=== PATIENT | male | born 1985 | race Caucasian/White ===

== ENCOUNTER 2017-04-30 12:09 | Inpatient (IN) | payer OTHER ==
[~2017-04-30] VITALS: Ht 167.6 cm; Wt 88.9 kg
[2017-04-30] VITALS (8 sets, daily range): BP systolic 120–167; BP diastolic 60–90
[~2017-04-30 12:09] MED LIST: ANAPROX DS550 MG PO; AUGMENTIN 875 M1 TAB PO; CLINDAMYCIN150 MG PO; DARVOCET N 1001 TAB PO; MOTRIN800 MG PO; PEPCID20 MG PO; PROVENTIL0.09 MG/AC IH; VIBRAMYCIN100 MG PO; XANAX0.25 MG PO; XANAX0.5 MG PO; ZITHROMAX Z PA250 MG PO
[2017-04-30 14:24] LABS: ALBUMIN 3.8 gm/dl (3.1-4.5); ALKALINE PHOSPHATASE 96 U/L (45-117); BUN 11 mg/dl (7-24); CHLORIDE 107 mmol/L (98-107); POTASSIUM 3.8 mmol/L (3.5-5.1); SGOT/AST 23 IU/L (3-35); SGPT/ALT 37 U/L (12-78); SODIUM 139 mmol/L (136-145); TOTAL PROTEIN 7.2 gm/dL (6.4-8.2)
[2017-04-30 14:26] LABS: BASO % 0.3 % (0.0-1.0); EOS % 0.3 % (1.0-4.0); HEMATOCRIT 46.6 % (42.0-52.0); HEMOGLOBIN 16.7 g/dl (14.0-18.0); LYMPH # 0.5 10*3/uL (1.3-4.4); LYMPH % 7.4 % (27.0-41.0); MEAN CELL VOLUME 82.6 fl (80.0-94.0); MEAN CORPUSCULAR HGB 29.6 pg (27.0-31.0); MEAN CORPUSCULAR HGB CONC 35.8 g/dl (33.0-37.0); MEAN PLATELET VOLUME 8.7 fl (9.6-12.3); MONO # 0.9 10*3/uL (0.1-1.0); MONO % 13.2 % (3.0-9.0); NEUT # 5.1 10*3/uL (2.3-7.9); NEUT % 78.5 % (47.0-73.0); PLATELET COUNT AUTOMATED 167 10*3/uL (130-400); RED BLOOD COUNT 5.64 10*6/uL (4.50-5.90); RED CELL DISTRI WIDTH 12.3 % (0-14.5); WHITE BLOOD COUNT 6.5 10*3/uL (4.8-10.8)
[2017-04-30 15:55] LABS: BILIRUBIN NEGATIVE (NEGATIVE); BLOOD NEGATIVE (NEGATIVE); CLARITY CLEAR (CLEAR); COLOR YELLOW (YELLOW); GLUCOSE NEGATIVE (NEGATIVE); KETONE TRACE (NEGATIVE); LEUKO ESTERASE NEGATIVE (NEGATIVE); NITRITE NEGATIVE (NEGATIVE); SPECIFIC GRAVITY 1.015 (1.005-1.030)
[2017-04-30 16:03] LABS: URINE AMPHETAMINES < 1000 (1000ng/ml); URINE BARBITURATES < 200 (200ng/ml); URINE BENZODIAZEPINES < 200 (200ng/ml); URINE CANNABINOIDS (THC) < 50 (50ng/ml); URINE COCAINE < 300 (300ng/ml); URINE METHADONE < 300 (300ng/ml); URINE OPIATES < 300 (300ng/ml)
[2017-04-30 16:07] LABS: URINE PHENCYCLIDINE < 25 (25ng/ml)
[2017-04-30 16:21] LABS: BACTERIA TRACE; MUCOUS TRACE; RBC 0-2 rbc/hpf (0-2); WBC 0-2 wbc/hpf (0-5)
[2017-04-30] MEDS ORDERED: VITAMIN D5000 UNI1 PO (18:22)
[2017-05-01 07:45] LABS: BASO % 0.3 % (0.0-1.0); HEMOGLOBIN 15.6 g/dl (14.0-18.0); LYMPH # 0.3 10*3/uL (1.3-4.4); LYMPH % 6.9 % (27.0-41.0); MEAN CORPUSCULAR HGB 28.8 pg (27.0-31.0); MEAN CORPUSCULAR HGB CONC 34.7 g/dl (33.0-37.0); MEAN PLATELET VOLUME 9.6 fl (9.6-12.3); MONO # 0.2 10*3/uL (0.1-1.0); MONO % 4.8 % (3.0-9.0); NEUT # 3.5 10*3/uL (2.3-7.9); NEUT % 87.7 % (47.0-73.0); PLATELET COUNT AUTOMATED 160 10*3/uL (130-400); RED BLOOD COUNT 5.42 10*6/uL (4.50-5.90); RED CELL DISTRI WIDTH 12.6 % (0-14.5); WHITE BLOOD COUNT 3.9 10*3/uL (4.8-10.8)
[2017-05-01 08:00] VITALS: BP 147/82
[2017-05-01 08:19] LABS: ALBUMIN 3.6 gm/dl (3.1-4.5); BUN 10 mg/dl (7-24); CHLORIDE 109 mmol/L (98-107); POTASSIUM 3.6 mmol/L (3.5-5.1); SODIUM 142 mmol/L (136-145)
[2017-05-01 08:27] LABS: ALKALINE PHOSPHATASE 88 U/L (45-117); CHOLESTEROL 158 mg/dL (<200); CREATININE 0.87 mg/dL (0.70-1.30); FREE T4 0.97 ng/dl (0.76-1.46); HDL CHOLESTEROL 47 mg/dl (40-60); LDL CHOLESTEROL 102 mg/dL (9-159); PHOSPHOROUS 2.4 mg/dL (2.5-4.9); SGOT/AST 20 IU/L (3-35); SGPT/ALT 35 U/L (12-78); THYROID STIM HORMONE (HS) 0.958 uIU/ml (0.358-4.75); TOTAL PROTEIN 7.1 gm/dL (6.4-8.2); TRIGLYCERIDES 46 mg/dl (<150); VLDL CHOLESTEROL 9 mg/dL (6-40)
[2017-05-01 08:40] LABS: VITAMIN D, 25-HYDROXY 28.9 ng/mL (30-100)
[2017-05-01 12:00] VITALS: BP 157/74
[2017-05-01 16:00] VITALS: BP 144/76
[2017-05-01 20:00] VITALS: BP 136/66
[2017-05-02] VITALS: BP 139/63
[2017-05-02 08:01] LABS: TROPONIN I 0.103 ng/ml (<0.045)
[2017-05-02 09:00] VITALS: BP 141/74
[2017-05-02] MEDS ORDERED: TAMIFLU 75MG CA75 MG PO (11:00)
== END 2017-05-02 11:18 | disposition home or self-care (01) | DRG 872 ==
LOC: ED 12:09 → 4E 16:35 → EDHOLD 16:35 → 4E 16:35
PROVIDERS: Internal Medicine; Physician Assistant
DX: A41.9 Sepsis, unspecified organism (principal); D72.810 Lymphocytopenia; J11.1 Influenza due to unidentified influenza virus with other respiratory manifestations; R74.8 Abnormal levels of other serum enzymes; E55.9 Vitamin D deficiency, unspecified; I10 Essential (primary) hypertension; F41.9 Anxiety disorder, unspecified; K21.9 Gastro-esophageal reflux disease without esophagitis; E78.00 Pure hypercholesterolemia, unspecified; Z87.891 Personal history of nicotine dependence; Z82.3 Family history of stroke; Z82.49 Family history of ischemic heart disease and other diseases of the circulatory system; Z83.3 Family history of diabetes mellitus; Z88.1 Allergy status to other antibiotic agents; Z79.899 Other long term (current) drug therapy; Z88.2 Allergy status to sulfonamides; Z88.8 Allergy status to other drugs, medicaments and biological substances; Z91.040 Latex allergy status; Z82.71 Family history of polycystic kidney

== ENCOUNTER → 2017-05-14 | Outpatient (CLI) | payer OTHER ==
[~2017-05-14] MED LIST changes: +TAMIFLU 75MG CA75 MG PO; +VITAMIN D5000 UNI1 PO
--- NOTE | ~2017-05-14 | HM ---
[place], [place] HOLTER MONITOR REPORT NAME: NADEEN BUTCHER UNIT #: [id number] ROOM: DOCTOR: GERRY COLBY MD BIRTHDATE: [birth year] DOS: 05/16/2017 REFERRING PHYSICIAN: Dr. Colby. INDICATION: Tachycardia, palpitations. FINDINGS: The patient underwent standard protocol under 24-hour Holter monitoring for indication of tachycardia, palpitations. 1. The patient's baseline rhythm is normal sinus, average heart rate 70 beats per minute, with minimum heart beat 47 beats per minute with a maximum heart beat of 133 beats per minute. 2. Supraventricular tachycardia. The patient noted to have a total of 44 isolated PACs. 3. Ventricular activity none. 4. No significant blocks, pauses, or bradycardia. 5. Diary was reviewed, which reported multiple episodes of shortness of breath, chest and back symptoms and palpitations, none of which correlated with any arrhythmias. SUMMARY AND FINDINGS: Benign. Holter monitoring with no correlation of symptoms with any arrhythmias. GERRY COLBY MD CM:HOLTER:HOLTER MONITOR REPORT [id number] GERRY COLBY MD
== END | disposition home or self-care (01) ==
LOC: CARD 11:23
DX: R00.0 Tachycardia, unspecified (principal); R00.2 Palpitations

== ENCOUNTER 2017-06-15 05:45 | Inpatient (IN) | payer OTHER ==
[~2017-06-15] VITALS: Ht 167.6 cm; Wt 88.6 kg
--- NOTE | ~2017-06-15 | PR ---
[place], [place] PROGRESS NOTE NAME: [id number] UNIT #: [id number] ROOM: 515 DOCTOR: SOFI TAN MD BIRTHDATE: [birth year] DOS: 06/16/2017 The patient was seen in the cardiology department today, 06/16/2017, just prior to a stress test. He is a 31-year-old man with a long history of palpitations. He tells me that a catheterization was done several years ago at the [facility] in [place] and was unremarkable. He has had several episodes of palpitations lasting up to an hour without associated symptoms. He usually just waits and they go away spontaneously. A 24-hour Holter monitor done recently was reportedly unremarkable. The patient has had troponin levels done in April and again now and they always mildly elevated. Even in November 2007, a troponin level was drawn and was 0.10. The etiology of this is not clear. He did have an echocardiogram done on 05/01/2017 that was a normal examination with normal left ventricular systolic and diastolic functions. No valvular abnormality was seen. There was no pericardial effusion. PHYSICAL EXAMINATION: VITAL SIGNS: On exam today, his pulse is 82 and regular, blood pressure is 140/90. He is afebrile. He weighs 88.6 kg and has a body mass index of 31.5. HEENT: Normocephalic, atraumatic. Extraocular muscles are intact. Sclerae are clear. Pupils equal, round and react to light. The oral mucosa is moist. Tongue is midline. NECK: Supple. He has no jugular distention. Carotids are full. There are no bruits. LUNGS: Respirations are unlabored. His chest is clear to auscultation and percussion. He has no presacral edema or chest wall tenderness. HEART: Has a regular rhythm. He has no murmurs, rubs or gallops. ABDOMEN: Benign. EXTREMITIES: Showed no edema. IMPRESSION: 1. Recurrent palpitations. 2. Mild elevation in troponin. 3. Elevated blood pressure reading. PLAN: We will proceed with an exercise myocardial perfusion study. If that is totally normal, we will have the patient wear a 30-day event recorder to try to capture his arrhythmias. If he does have an AV yordan reentrant tachycardia or similar supraventricular tachycardia then a referral to electrophysiology for consideration of ablation would be a next step. I thank the hospitalist physicians for asking our advice regarding the patient's care. [place], [place] PROGRESS NOTE NAME: NADEEN BUTCHER UNIT #: [id number] ROOM: [facility] DOCTOR: SOFI TAN MD BIRTHDATE: [birth year] SOFI TAN MD CM:PNTRANS [id number] SOFI TAN MD 06/16/17 1230 interface
--- NOTE | ~2017-06-15 | EKG ---
[place], [place] ELECTROCARDIOGRAM REPORT NAME: NADEEN BUTCHER UNIT #: [id number] ROOM: [facility] DOCTOR: ISHAN BOSWELL,LOTUS BIRTHDATE: [birth year] DOS: 06/15/2017 TIME: IMPRESSION: 1. Sinus rhythm with sinus tachycardia. 2. Nonspecific ST-T changes. 3. Normal QT interval. 4. No significant ischemia. LOTUS OLMSTEAD MD CM:EKGRPT:ELECTROCARDIOGRAM REPORT [id number] LOTUS OLMSTEAD MD
--- NOTE | ~2017-06-15 | CON ---
[place], [place] REPORT OF CONSULTATION NAME: NADEEN BUTCHER UNIT #: [id number] ROOM: 515 DOCTOR: LOTUS OLMSTEAD MD BIRTHDATE: [birth year] DOS: 06/15/2017 REASON FOR CONSULTATION: Elevated troponin. HISTORY OF PRESENT COMPLAINT: The patient is a 31-year-old patient with no previous cardiovascular history, who presented to Emergency Room with "heart palpitations". He was in the hospital last month for ____ and tachycardia as well as elevated troponin and at that time he was seen by Cardiology and recommended outpatient Holter monitor, which showed a few episodes of sinus tachycardia. He is supposed to see the clothing worker next week. He woke up with "heart racing" from his sleep, associated some shortness of breath and diaphoresis. He had similar episodes, about 4-5 episodes in the last few weeks, but he never had syncope. The symptoms are not related to activity or any particular time, but he denies any excessive caffeine intake. Says his heart racing lasts for a few seconds to a few minutes, associated with some shortness of breath and diaphoresis. He denies any cough or hemoptysis. No fever and chills. No PND. No orthopnea. No nausea, vomiting or diarrhea. No headache. No bladder and bowel symptoms. He has a strong family history of premature coronary artery disease. He had a cardiac catheterization about 6-7 years ago, which was unremarkable per him. He did drink 4-5 glasses of tea regularly, but no sodas or chocolates. REVIEW OF SYSTEMS: Review of the 10 systems negative except as mentioned above. PAST MEDICAL HISTORY: 1. Sinus tachycardia. 2. Heart palpitations. 3. Family history of coronary artery disease. 4. Vitamin D deficiency. 5. Overweight. PAST SURGICAL HISTORY: Nil contributory. SOCIAL HISTORY: The patient does not use illicit drugs. Former smoker, quit several years ago. FAMILY HISTORY: Father had coronary artery disease in his early 40s as well as stroke and diabetes. Mother has polycystic kidney disease, with renal transplant. ALLERGIES: Reviewed including SULFA, LEVAQUIN. HOME MEDICATIONS: Reviewed. PHYSICAL EXAMINATION: VITAL SIGNS: Blood pressure 142/82, pulse 100, respiratory rate 20. GENERAL: Alert, comfortable, in no acute distress. HEAD AND NECK: Pupils are round and equal. No jaundice. Tongue was moist. Neck supple. No distended neck veins. No carotid bruit. CHEST: Symmetrical, nontender. [place], [place] REPORT OF CONSULTATION NAME: NADEEN BUTCHER UNIT #: [id number] ROOM: [facility] DOCTOR: LOTUS OLMSTEAD MD BIRTHDATE: [birth year] LUNGS: Clear to auscultation bilaterally. HEART: Regular rhythm. No S3. ABDOMEN: Benign, nontender. Bowel sounds normal. EXTREMITIES: Showed no edema. Distal pulses are palpable. SKIN: Warm and dry. No cyanosis. No clubbing. NEUROLOGIC: The patient is alert, oriented. No focal neurologic deficit. RECTAL: Deferred. GENITOURINARY: Deferred. DIAGNOSTIC STUDIES: EKGs and labs reviewed. EKG showed normal sinus rhythm, normal QT interval. No ischemic changes. The cardiac troponin was elevated at 0.87. Creatinine was 0.99. His CRP was 6.38. IMPRESSION: 1. Heart palpitations. 2. History of sinus tachycardia and supraventricular tachycardia. 3. Elevated troponin. The patient is in chest pain and EKG showed no ischemia. 4. Family history of coronary artery disease. RECOMMENDATIONS: 1. Start low-dose beta blockers and also aspirin. 2. Cycle his cardiac enzymes including total CPK and MB. 3. We will check his lipid profiles due to his elevated CRP. 4. Exercise nuclear stress test tomorrow. 5. Continue to monitor heart rate and blood pressures closely. LOTUS OLMSTEAD MD CM:CONSTR:REPORT OF CONSULTATION 0038 06/16/17 1449 interface
[2017-06-15 05:46] VITALS: BP 150/100
[2017-06-15 06:03] VITALS: BP 140/85
[2017-06-15 06:46] LABS: BASO % 0.5 % (0.0-1.0); EOS # 0.1 10*3/uL (0.0-0.4); EOS % 1.5 % (1.0-4.0); HEMATOCRIT 49.4 % (42.0-52.0); HEMOGLOBIN 17.3 g/dl (14.0-18.0); LYMPH # 1.4 10*3/uL (1.3-4.4); LYMPH % 22.8 % (27.0-41.0); MEAN CELL VOLUME 83.9 fl (80.0-94.0); MEAN CORPUSCULAR HGB 29.4 pg (27.0-31.0); MEAN PLATELET VOLUME 8.5 fl (9.6-12.3); MONO # 0.9 10*3/uL (0.1-1.0); NEUT # 3.7 10*3/uL (2.3-7.9); NEUT % 60.9 % (47.0-73.0); PLATELET COUNT AUTOMATED 221 10*3/uL (130-400); RED BLOOD COUNT 5.89 10*6/uL (4.50-5.90); RED CELL DISTRI WIDTH 12.9 % (0-14.5); WHITE BLOOD COUNT 6.1 10*3/uL (4.8-10.8)
[2017-06-15 06:54] LABS: INTERNATIONAL NORM RATIO 0.9 (2.0-3.5)
[2017-06-15 07:01] LABS: ALBUMIN 3.7 gm/dl (3.1-4.5); ALKALINE PHOSPHATASE 114 U/L (45-117); BUN 15 mg/dl (7-24); CHLORIDE 107 mmol/L (98-107); CREATININE 0.99 mg/dL (0.70-1.30); POTASSIUM 3.7 mmol/L (3.5-5.1); SGOT/AST 28 IU/L (3-35); SGPT/ALT 48 U/L (12-78); SODIUM 140 mmol/L (136-145); TOTAL PROTEIN 7.3 gm/dL (6.4-8.2)
[2017-06-15 07:05] LABS: TROPONIN I 0.089 ng/ml (<0.045)
[2017-06-15 07:07] VITALS: BP 132/84
[2017-06-15 08:00] VITALS: BP 142/82
[2017-06-15 12:00] VITALS: BP 134/70
[2017-06-15 12:36] LABS: CKMB 2.2 ng/ml (0.5-3.6)
[2017-06-15 16:00] VITALS: BP 135/70
[2017-06-16 00:16] VITALS: BP 137/72
[2017-06-16 07:14] LABS: BASO % 0.6 % (0.0-1.0); EOS % 0.6 % (1.0-4.0); HEMATOCRIT 49.8 % (42.0-52.0); HEMOGLOBIN 16.9 g/dl (14.0-18.0); LYMPH # 1.1 10*3/uL (1.3-4.4); LYMPH % 21.4 % (27.0-41.0); MEAN CELL VOLUME 84.1 fl (80.0-94.0); MEAN CORPUSCULAR HGB 28.5 pg (27.0-31.0); MEAN CORPUSCULAR HGB CONC 33.9 g/dl (33.0-37.0); MEAN PLATELET VOLUME 9.3 fl (9.6-12.3); MONO # 0.7 10*3/uL (0.1-1.0); MONO % 12.4 % (3.0-9.0); NEUT # 3.5 10*3/uL (2.3-7.9); NEUT % 64.8 % (47.0-73.0); PLATELET COUNT AUTOMATED 221 10*3/uL (130-400); RED BLOOD COUNT 5.92 10*6/uL (4.50-5.90); WHITE BLOOD COUNT 5.3 10*3/uL (4.8-10.8)
[2017-06-16 07:21] LABS: BUN 11 mg/dl (7-24); CHLORIDE 107 mmol/L (98-107); CREATININE 0.81 mg/dL (0.70-1.30); PHOSPHOROUS 2.3 mg/dL (2.5-4.9); POTASSIUM 3.5 mmol/L (3.5-5.1); SODIUM 139 mmol/L (136-145)
[2017-06-16 08:00] VITALS: BP 138/78
[2017-06-16 16:00] VITALS: BP 127/60
[2017-06-16] MEDS ORDERED: ASPIRIN325 M2 PO (16:03)
[2017-06-16] MEDS ORDERED: METOPROLOL SUCC25 M2 PO (16:03)
== END 2017-06-16 16:43 | disposition home or self-care (01) | DRG 309 ==
LOC: ED 05:45 → EDHOLD 07:28 → 5E 07:28
PROVIDERS: Emergency Medicine; Internal Medicine Cardiovascular Disease; Student in an Organized Health Care Education/Training Program
PROC: 4A02XM4 Measurement of Cardiac Total Activity, External Approach (ICD-10-PCS; principal; 2017-06-16)
DX: R00.2 Palpitations (principal); R65.10 Systemic inflammatory response syndrome (SIRS) of non-infectious origin without acute organ dysfunction; E83.41 Hypermagnesemia; D72.810 Lymphocytopenia; Z87.891 Personal history of nicotine dependence; Z82.49 Family history of ischemic heart disease and other diseases of the circulatory system; Z82.3 Family history of stroke; Z83.3 Family history of diabetes mellitus; Z79.899 Other long term (current) drug therapy; Z88.1 Allergy status to other antibiotic agents; Z91.040 Latex allergy status; Z84.1 Family history of disorders of kidney and ureter; Z88.2 Allergy status to sulfonamides

== ENCOUNTER 2018-02-25 07:01 | Emergency (ER) | payer BC ==
[~2018-02-25] VITALS: Ht 167.6 cm; Wt 88.0 kg
--- NOTE | ~2018-02-25 | EKG ---
[place], [place] ELECTROCARDIOGRAM REPORT NAME: NADEEN BUTCHER UNIT #: [id number] ROOM: DOCTOR: EPIPHANY DRAFT REPORT BIRTHDATE: [birth year] [facility] Test Date: 2018-02-25 Test Time: 07:20:49 Pat Name: NADEEN BUTCHER Department: ER Room: Gender: Orchid Grower: Desi Cortez : 1985 Requested By: NADEEN MONTGOMERY Order Number: [id number] Reading MD: Steven Flannery MD Measurements Intervals [place] Rate: 88 P: 50 SD: 124 QRS: 43 QRSD: 83 T: 55 QT: 333 QTc: 403 Interpretive Statements Sinus rhythm Baseline wander in lead(s) V2,V3 Electronically Signed On 02-26-2018 4:08:36 PST by Steven Flannery MD CM:EKGRPT:ELECTROCARDIOGRAM REPORT [id number] NADEEN HERNANDEZ DRAFT REPORT NADEEN MONTGOMERY DO
[~2018-02-25 07:01] MED LIST changes: +ASPIRIN325 M2 PO; +METOPROLOL SUCC25 M2 PO
[2018-02-25 07:38] LABS: BASO % 0.5 % (0.0-1.0); EOS # 0.1 10*3/uL (0.0-0.4); EOS % 1.1 % (1.0-4.0); HEMATOCRIT 50.6 % (42.0-52.0); HEMOGLOBIN 17.7 g/dl (14.0-18.0); LYMPH # 2.2 10*3/uL (1.3-4.4); LYMPH % 26.1 % (27.0-41.0); MEAN CELL VOLUME 82.8 fl (80.0-94.0); MEAN PLATELET VOLUME 8.7 fl (9.6-12.3); MONO % 12.4 % (3.0-9.0); NEUT % 59.5 % (47.0-73.0); PLATELET COUNT AUTOMATED 217 10*3/uL (130-400); RED BLOOD COUNT 6.11 10*6/uL (4.50-5.90); RED CELL DISTRI WIDTH 12.7 % (0-14.5); WHITE BLOOD COUNT 8.4 10*3/uL (4.8-10.8)
[2018-02-25 07:50] LABS: ACT PARTIAL THROMBO TIME 27.1 SECONDS (20.8-31.5)
[2018-02-25 07:53] LABS: ALKALINE PHOSPHATASE 116 U/L (45-117); BUN 12 mg/dl (7-24); CHLORIDE 104 mmol/L (98-107); CREATININE 1.08 mg/dL (0.70-1.30); LIPASE 119 U/L (73-393); POTASSIUM 3.4 mmol/L (3.5-5.1); SGOT/AST 17 IU/L (3-35); SGPT/ALT 38 U/L (12-78); SODIUM 137 mmol/L (136-145); TOTAL PROTEIN 7.6 gm/dL (6.4-8.2); TROPONIN I 0.044 ng/ml (<0.045)
== END 2018-02-25 09:21 | disposition home or self-care (01) ==
LOC: ED 07:01
PROVIDERS: Emergency Medicine
DX: R00.2 Palpitations (principal); Z87.891 Personal history of nicotine dependence

== ENCOUNTER → 2018-05-19 | Outpatient (CLI) | payer BC ==
[2018-05-19 14:32] LABS: BUN 17 mg/dl (7-24); CHLORIDE 109 mmol/L (98-107); CREATININE 1.02 mg/dL (0.70-1.30); POTASSIUM 3.9 mmol/L (3.5-5.1); SODIUM 141 mmol/L (136-145)
== END | disposition home or self-care (01) ==
LOC: LAB 13:28
PROVIDERS: Family Medicine
DX: R00.0 Tachycardia, unspecified (principal)

== ENCOUNTER 2018-09-25 15:51 | Emergency (ER) | payer BC ==
[~2018-09-25] VITALS: Wt 90.7 kg
[2018-09-25] MEDS ORDERED: NORCO 5-325 TA1 EACH PO (19:52)
[2018-09-25] MEDS ORDERED: IBUPROFEN600 MG PO (19:52)
== END 2018-09-25 21:02 | disposition home or self-care (01) ==
LOC: ED 15:51
DX: S43.401A Unspecified sprain of right shoulder joint, initial encounter (principal); S20.211A Contusion of right front wall of thorax, initial encounter; S00.91XA Abrasion of unspecified part of head, initial encounter; S20.411A Abrasion of right back wall of thorax, initial encounter; S50.312A Abrasion of left elbow, initial encounter; S50.311A Abrasion of right elbow, initial encounter; M54.2 Cervicalgia; V86.59XA Driver of other special all-terrain or other off-road motor vehicle injured in nontraffic accident, initial encounter; Y93.I9 Activity, other involving external motion; Y92.488 Other paved roadways as the place of occurrence of the external cause; Y99.8 Other external cause status

== ENCOUNTER → 2018-10-06 | Outpatient (CLI) | payer MEDICAID ==
[~2018-10-06] MED LIST changes: +IBUPROFEN600 MG PO; +NORCO 5-325 TA1 EACH PO
== END ==
LOC: ORTHO 01:09
DX: S42.001D Fracture of unspecified part of right clavicle, subsequent encounter for fracture with routine healing (principal); S22.20XD Unspecified fracture of sternum, subsequent encounter for fracture with routine healing; X58.XXXD Exposure to other specified factors, subsequent encounter

== ENCOUNTER → 2018-10-16 | Outpatient (CLI) | payer MEDICAID | END | disposition home or self-care (01) | LOC: CT 10-14 16:00 | DX: S43.60XA Sprain of unspecified sternoclavicular joint, initial encounter (principal); S42.001A Fracture of unspecified part of right clavicle, initial encounter for closed fracture; X58.XXXA Exposure to other specified factors, initial encounter; Y93.89 Activity, other specified; Y92.89 Other specified places as the place of occurrence of the external cause; Y99.8 Other external cause status ==

== ENCOUNTER 2019-04-01 09:04 | Emergency (ER) | payer OTHER ==
[2019-04-01 09:34] LABS: BASO % 0.5 % (0.0-1.0); EOS # 0.1 10*3/uL (0.0-0.4); EOS % 1.2 % (1.0-4.0); HEMATOCRIT 50.8 % (42.0-52.0); HEMOGLOBIN 17.8 g/dl (14.0-18.0); LYMPH # 0.9 10*3/uL (1.3-4.4); LYMPH % 10.4 % (27.0-41.0); MEAN CELL VOLUME 83.8 fl (80.0-94.0); MEAN CORPUSCULAR HGB 29.4 pg (27.0-31.0); MEAN PLATELET VOLUME 8.8 fl (9.6-12.3); MONO # 1.1 10*3/uL (0.1-1.0); MONO % 13.2 % (3.0-9.0); NEUT # 6.2 10*3/uL (2.3-7.9); NEUT % 74.3 % (47.0-73.0); PLATELET COUNT AUTOMATED 206 10*3/uL (130-400); RED BLOOD COUNT 6.06 10*6/uL (4.50-5.90); RED CELL DISTRI WIDTH 12.4 % (0-14.5); WHITE BLOOD COUNT 8.4 10*3/uL (4.8-10.8)
[2019-04-01 09:50] LABS: BUN 12 mg/dl (7-24); CHLORIDE 108 mmol/L (98-107); CREATININE 1.14 mg/dL (0.70-1.30); POTASSIUM 3.7 mmol/L (3.5-5.1); SODIUM 139 mmol/L (136-145); TROPONIN I 0.023 ng/ml (<0.045)
[2019-04-01] MEDS ORDERED: LOPRESSOR25 MG PO (10:04)
== END 2019-04-01 10:12 | disposition home or self-care (01) ==
LOC: ED 09:04
PROVIDERS: Emergency Medicine
DX: R00.2 Palpitations (principal); Z88.2 Allergy status to sulfonamides; Z88.1 Allergy status to other antibiotic agents; Z87.891 Personal history of nicotine dependence

== ENCOUNTER 2019-05-30 01:39 | Emergency (ER) | payer OTHER ==
[~2019-05-30] VITALS: Ht 167.6 cm; Wt 90.7 kg
[~2019-05-30 01:39] MED LIST changes: +LOPRESSOR25 MG PO
[2019-05-30 02:42] LABS: BASO % 0.5 % (0.0-1.0); EOS # 0.1 10*3/uL (0.0-0.4); EOS % 1.8 % (1.0-4.0); HEMATOCRIT 47.4 % (42.0-52.0); HEMOGLOBIN 16.6 g/dl (14.0-18.0); LYMPH # 1.8 10*3/uL (1.3-4.4); LYMPH % 29.2 % (27.0-41.0); MEAN CELL VOLUME 83.7 fl (80.0-94.0); MEAN CORPUSCULAR HGB 29.3 pg (27.0-31.0); MONO # 0.8 10*3/uL (0.1-1.0); MONO % 13.3 % (3.0-9.0); NEUT # 3.3 10*3/uL (2.3-7.9); NEUT % 54.7 % (47.0-73.0); PLATELET COUNT AUTOMATED 221 10*3/uL (130-400); RED BLOOD COUNT 5.66 10*6/uL (4.50-5.90); RED CELL DISTRI WIDTH 12.6 % (0-14.5); WHITE BLOOD COUNT 6.1 10*3/uL (4.8-10.8)
[2019-05-30 02:59] LABS: ALBUMIN 3.6 gm/dl (3.1-4.5); ALKALINE PHOSPHATASE 104 U/L (45-117); BUN 16 mg/dl (7-24); CHLORIDE 111 mmol/L (98-107); CREATININE 0.94 mg/dL (0.70-1.30); POTASSIUM 3.4 mmol/L (3.5-5.1); SGOT/AST 13 IU/L (3-35); SGPT/ALT 33 U/L (12-78); SODIUM 142 mmol/L (136-145); TOTAL PROTEIN 6.9 gm/dL (6.4-8.2); TROPONIN I 0.027 ng/ml (<0.045)
== END 2019-05-30 03:42 | disposition home or self-care (01) ==
LOC: ED 01:39
PROVIDERS: Emergency Medicine Emergency Medical Services
DX: R00.2 Palpitations (principal); Z88.2 Allergy status to sulfonamides; Z88.1 Allergy status to other antibiotic agents; Z79.899 Other long term (current) drug therapy; Z87.891 Personal history of nicotine dependence

== ENCOUNTER → 2019-06-01 | Outpatient (CLI) | payer OTHER | END | disposition home or self-care (01) | LOC: CARD 10:18 | DX: I49.3 Ventricular premature depolarization (principal); R00.2 Palpitations ==

== ENCOUNTER → 2020-04-03 | Outpatient (CLI) | payer OTHER ==
[~2020-04-03] MED LIST changes: +ARTIFICIAL TEAR1514 OP; +PREDNISONE20 M1 PO
== END | disposition home or self-care (01) ==
LOC: COVID19 09:57
PROVIDERS: ATTEND Family Medicine
DX: Z20.828 Contact with and (suspected) exposure to other viral communicable diseases (principal)

== ENCOUNTER 2020-04-15 14:41 | Emergency (ER) | payer OTHER ==
[~2020-04-15] VITALS: Ht 167.6 cm; Wt 92.1 kg
[~2020-04-15 14:41] MED LIST changes: -ARTIFICIAL TEAR1514 OP; -PREDNISONE20 M1 PO
[2020-04-15] MEDS ORDERED: VIBRAMYCIN100 MG PO (15:13)
[2020-04-15] MEDS ORDERED: ARTIFICIAL TEAR1514 OP (15:13)
[2020-04-15] MEDS ORDERED: PREDNISONE20 M1 PO (15:13)
[2020-04-15 15:27] LABS: BASO % 0.6 % (0.0-1.0); EOS # 0.1 10*3/uL (0.0-0.4); EOS % 1.6 % (1.0-4.0); HEMATOCRIT 49.6 % (42.0-52.0); LYMPH # 1.2 10*3/uL (1.3-4.4); LYMPH % 23.3 % (27.0-41.0); MEAN CELL VOLUME 82.8 fl (80.0-94.0); MEAN CORPUSCULAR HGB 28.2 pg (27.0-31.0); MEAN CORPUSCULAR HGB CONC 34.1 g/dl (33.0-37.0); MEAN PLATELET VOLUME 8.8 fl (9.6-12.3); MONO # 0.6 10*3/uL (0.1-1.0); MONO % 12.6 % (3.0-9.0); NEUT % 61.5 % (47.0-73.0); PLATELET COUNT AUTOMATED 226 10*3/uL (130-400); RED BLOOD COUNT 5.99 10*6/uL (4.50-5.90); RED CELL DISTRI WIDTH 12.5 % (0-14.5); WHITE BLOOD COUNT 4.9 10*3/uL (4.8-10.8)
[2020-04-15 15:38] LABS: BUN 13 mg/dl (7-24); CHLORIDE 108 mmol/L (98-107); CREATININE 1.07 mg/dL (0.70-1.30); POTASSIUM 3.7 mmol/L (3.5-5.1); SODIUM 139 mmol/L (136-145)
== END 2020-04-15 15:23 | disposition home or self-care (01) ==
LOC: ED 14:41
PROVIDERS: Emergency Medicine
DX: G51.0 Bell's palsy (principal); Z88.2 Allergy status to sulfonamides; Z88.1 Allergy status to other antibiotic agents; Z79.899 Other long term (current) drug therapy; Z98.61 Coronary angioplasty status; Z87.891 Personal history of nicotine dependence

== ENCOUNTER 2021-04-18 03:05 | Emergency (ER) | payer OTHER ==
[~2021-04-18] VITALS: Ht 167.6 cm; Wt 91.2 kg
[~2021-04-18 03:05] MED LIST changes: +ARTIFICIAL TEAR1514 OP; +PREDNISONE20 M1 PO
[2021-04-18] MEDS ORDERED: METOPROLOL SUCC25 M2 PO (03:34)
[2021-04-18] MEDS ORDERED: METOPROLOL25 MG PO (03:35)
== END 2021-04-18 04:28 | disposition home or self-care (01) ==
LOC: ED 03:05
DX: B34.9 Viral infection, unspecified (principal); Z20.822 Contact with and (suspected) exposure to COVID-19; R00.0 Tachycardia, unspecified; Z88.2 Allergy status to sulfonamides; Z88.1 Allergy status to other antibiotic agents; Z79.899 Other long term (current) drug therapy

== ENCOUNTER → 2021-04-30 | Outpatient (CLI) | payer OTHER ==
[~2021-04-30] MED LIST changes: +METOPROLOL25 MG PO
== END ==
LOC: COVID19 17:05
PROVIDERS: ATTEND Student in an Organized Health Care Education/Training Program
DX: Z11.52 Encounter for screening for COVID-19 (principal); Z20.822 Contact with and (suspected) exposure to COVID-19

== ENCOUNTER 2022-11-24 16:53 | Emergency (ER) | payer BC, OTHER ==
[~2022-11-24] VITALS: Ht 167.6 cm; Wt 93.0 kg
== END 2022-11-24 17:45 | disposition home or self-care (01) ==
LOC: ED 16:53
DX: S41.132A Puncture wound without foreign body of left upper arm, initial encounter (principal); Z88.2 Allergy status to sulfonamides; Z88.8 Allergy status to other drugs, medicaments and biological substances; Z95.5 Presence of coronary angioplasty implant and graft; Z87.891 Personal history of nicotine dependence; W26.8XXA Contact with other sharp object(s), not elsewhere classified, initial encounter; Y93.89 Activity, other specified; Y92.89 Other specified places as the place of occurrence of the external cause; Y99.8 Other external cause status

== ENCOUNTER → 2023-08-25 | Outpatient (CLI) | payer BC ==
[2023-08-25 16:02] LABS: BASO % 0.6 % (0.0-1.0); EOS # 0.1 10*3/uL (0.0-0.4); EOS % 1.9 % (1.0-4.0); HEMATOCRIT 51.1 % (42.0-52.0); LYMPH % 21.6 % (27.0-41.0); MEAN CELL VOLUME 81.2 fl (80.0-94.0); MEAN CORPUSCULAR HGB 28.3 pg (27.0-31.0); MEAN CORPUSCULAR HGB CONC 34.8 g/dl (33.0-37.0); MEAN PLATELET VOLUME 8.9 fl (9.6-12.3); MONO # 0.5 10*3/uL (0.1-1.0); MONO % 10.4 % (3.0-9.0); NEUT # 3.2 10*3/uL (2.3-7.9); NEUT % 65.3 % (47.0-73.0); PLATELET COUNT AUTOMATED 218 10*3/uL (130-400); RED BLOOD COUNT 6.29 10*6/uL (4.50-5.90); RED CELL DISTRI WIDTH 12.9 % (0-14.5); WHITE BLOOD COUNT 4.8 10*3/uL (4.8-10.8)
[2023-08-25 16:25] LABS: ALKALINE PHOSPHATASE 108 U/L (46-116); BUN 7 mg/dl (9-23); CHLORIDE 107 mmol/L (98-107); CHOLESTEROL 178 mg/dL (<200); FREE T4 1.09 ng/dl (0.89-1.76); LDL CHOLESTEROL 117 mg/dL (9-159); POTASSIUM 3.8 mmol/L (3.4-5.1); SGPT/ALT 36 U/L (5-49); TOTAL PROTEIN 6.9 gm/dL (6.0-8.0); TRIGLYCERIDES 130 mg/dl (<150); VITAMIN D, 25-HYDROXY 30.7 ng/mL (30-100)
== END | disposition home or self-care (01) ==
LOC: LAB 15:23
PROVIDERS: ATTEND Internal Medicine
DX: Z13.220 Encounter for screening for lipoid disorders (principal); Z13.228 Encounter for screening for other metabolic disorders; Z13.29 Encounter for screening for other suspected endocrine disorder; Z13.6 Encounter for screening for cardiovascular disorders; Z13.89 Encounter for screening for other disorder; Z13.9 Encounter for screening, unspecified; I10 Essential (primary) hypertension; J11.1 Influenza due to unidentified influenza virus with other respiratory manifestations; J44.9 Chronic obstructive pulmonary disease, unspecified

== ENCOUNTER 2024-04-22 07:15 | Observation (INO) | payer OTHER ==
[~2024-04-22] VITALS: Ht 167.6 cm; Wt 93.9 kg
[2024-04-22 07:25] VITALS: BP 165/77
[2024-04-22] MEDS ORDERED: ASPIRIN ADULT L81 M2 PO (07:34)
[2024-04-22] MEDS ORDERED: VITAMIN D325 MCG PO (07:36)
[2024-04-22 08:05] LABS: BASO % 0.5 % (0.0-1.0); EOS # 0.1 10*3/uL (0.0-0.4); EOS % 1.3 % (1.0-4.0); HEMATOCRIT 49.3 % (42.0-52.0); MEAN CELL VOLUME 83.3 fl (80.0-94.0); MEAN CORPUSCULAR HGB 28.9 pg (27.0-31.0); MEAN CORPUSCULAR HGB CONC 34.7 g/dl (33.0-37.0); MEAN PLATELET VOLUME 8.9 fl (9.6-12.3); MONO % 12.3 % (3.0-9.0); NEUT # 4.8 10*3/uL (2.3-7.9); PLATELET COUNT AUTOMATED 240 10*3/uL (130-400); RED BLOOD COUNT 5.92 10*6/uL (4.50-5.90); RED CELL DISTRI WIDTH 12.6 % (0-14.5); WHITE BLOOD COUNT 7.8 10*3/uL (4.8-10.8)
[2024-04-22] MEDS ORDERED: ASPIRIN, CHEWABLE 81 MG TAB PO ONE (08:20)
[2024-04-22] MEDS ORDERED: NITROGLYCERIN 1 IN PACKET T ONE (08:25)
[2024-04-22 08:27] LABS: ALKALINE PHOSPHATASE 122 U/L (46-116); BUN 11 mg/dl (9-23); CHLORIDE 107 mmol/L (98-107); CPK 93 U/L (34-171); LIPASE 34 U/L (12-53); POTASSIUM 3.4 mmol/L (3.4-5.1); SGPT/ALT 36 U/L (5-49)
[2024-04-22 08:30] LABS: FREE T4 1.26 ng/dl (0.89-1.76)
[2024-04-22] MEDS ORDERED: Enoxaparin Sodium 40 MG/0.4 ML SYR SC SCH (10:00)
[2024-04-22 10:43] LABS: BILIRUBIN Negative (Negative); BLOOD Negative (Negative); CLARITY Clear (Clear); COLOR Yellow (Yellow); GLUCOSE Negative (Negative); KETONE Negative (Negative); LEUKO ESTERASE Negative (Negative); NITRITE Negative (Negative); PH 5.5 (4.5-8.0); UROBILINOGEN 0.2 E.U./dl (0.0-1.0)
[2024-04-22 10:51] LABS: URINE AMPHETAMINES Negative (1000ng/ml); URINE BARBITURATES Negative (200ng/ml); URINE BENZODIAZEPINES Negative (200ng/ml); URINE CANNABINOIDS (THC) Negative (50ng/ml); URINE COCAINE Negative (300ng/ml); URINE METHADONE Negative (300ng/ml); URINE OPIATES Negative (300ng/ml); URINE PHENCYCLIDINE Negative (25ng/ml)
[2024-04-22 10:58] LABS: EPITHELIAL CELLS 0-2; RBC 16-20 rbc/hpf (0-2); WBC 0-2 wbc/hpf (0-5)
[2024-04-22 10:59] LABS: BACTERIA TRACE; CALCIUM OXALATE CRYSTALS 1+; MUCOUS 1+
== END 2024-04-22 15:30 | disposition home or self-care (01) ==
LOC: ED 07:15 → EDHOLD 08:55
PROVIDERS: Emergency Medicine; ADMIT Internal Medicine; ATTEND Internal Medicine
DX: R07.89 Other chest pain (principal); I47.10 Supraventricular tachycardia, unspecified; I10 Essential (primary) hypertension; Z82.49 Family history of ischemic heart disease and other diseases of the circulatory system; Z87.891 Personal history of nicotine dependence; Z79.899 Other long term (current) drug therapy

== ENCOUNTER 2024-05-24 11:16 | Emergency (ER) | payer OTHER ==
[~2024-05-24] VITALS: Ht 167.6 cm; Wt 93.9 kg
[~2024-05-24 11:16] MED LIST changes: +ASPIRIN ADULT L81 M2 PO; +VITAMIN D325 MCG PO
[2024-05-24] MEDS ORDERED: SODIUM CHLORIDE 0.9% 1,000 ML IV ONE (12:10)
[2024-05-24 12:13] LABS: BASO # 0.1 10*3/uL (0.0-0.1); BASO % 0.7 % (0.0-1.0); EOS # 0.1 10*3/uL (0.0-0.4); EOS % 1.3 % (1.0-4.0); HEMATOCRIT 48.4 % (42.0-52.0); MEAN CELL VOLUME 84.6 fl (80.0-94.0); MEAN CORPUSCULAR HGB 28.8 pg (27.0-31.0); MEAN CORPUSCULAR HGB CONC 34.1 g/dl (33.0-37.0); MEAN PLATELET VOLUME 8.8 fl (9.6-12.3); MONO # 0.6 10*3/uL (0.1-1.0); MONO % 9.1 % (3.0-9.0); NEUT # 5.1 10*3/uL (2.3-7.9); NEUT % 72.2 % (47.0-73.0); PLATELET COUNT AUTOMATED 231 10*3/uL (130-400); RED BLOOD COUNT 5.72 10*6/uL (4.50-5.90); RED CELL DISTRI WIDTH 12.6 % (0-14.5); WHITE BLOOD COUNT 7.1 10*3/uL (4.8-10.8)
[2024-05-24 12:40] LABS: ALKALINE PHOSPHATASE 107 U/L (46-116); BUN 9 mg/dl (9-23); CHLORIDE 107 mmol/L (98-107); POTASSIUM 3.6 mmol/L (3.4-5.1); SGPT/ALT 39 U/L (5-49); TOTAL PROTEIN 7.3 gm/dL (6.0-8.0)
== END 2024-05-24 15:49 | disposition home or self-care (01) ==
LOC: ED 11:16
PROVIDERS: Nurse Practitioner Family
DX: I47.9 Paroxysmal tachycardia, unspecified (principal); I47.10 Supraventricular tachycardia, unspecified; I10 Essential (primary) hypertension; E83.41 Hypermagnesemia; Z88.2 Allergy status to sulfonamides; Z88.1 Allergy status to other antibiotic agents; Z88.8 Allergy status to other drugs, medicaments and biological substances; Z95.5 Presence of coronary angioplasty implant and graft; Z87.891 Personal history of nicotine dependence

== ENCOUNTER 2024-06-24 14:07 | Emergency (ER) | payer OTHER ==
[~2024-06-24] VITALS: Ht 167.6 cm; Wt 91.2 kg
[2024-06-24] MEDS ORDERED: SODIUM CHLORIDE 0.9% 1,000 ML IV ONE (14:25)
[2024-06-24 14:39] LABS: BASO % 0.6 % (0.0-1.0); EOS % 0.6 % (1.0-4.0); HEMATOCRIT 47.7 % (42.0-52.0); MEAN CELL VOLUME 84.1 fl (80.0-94.0); MEAN CORPUSCULAR HGB 28.9 pg (27.0-31.0); MEAN CORPUSCULAR HGB CONC 34.4 g/dl (33.0-37.0); MEAN PLATELET VOLUME 8.7 fl (9.6-12.3); MONO # 0.6 10*3/uL (0.1-1.0); MONO % 11.5 % (3.0-9.0); NEUT # 3.6 10*3/uL (2.3-7.9); NEUT % 70.5 % (47.0-73.0); PLATELET COUNT AUTOMATED 215 10*3/uL (130-400); RED BLOOD COUNT 5.67 10*6/uL (4.50-5.90); WHITE BLOOD COUNT 5.1 10*3/uL (4.8-10.8)
[2024-06-24 15:02] LABS: BUN 10 mg/dl (9-23); CHLORIDE 106 mmol/L (98-107); POTASSIUM 3.7 mmol/L (3.4-5.1)
== END 2024-06-24 15:35 | disposition home or self-care (01) ==
LOC: ED 14:07
PROVIDERS: Emergency Medicine
DX: R00.2 Palpitations (principal); M79.605 Pain in left leg; F32.A Depression, unspecified; F41.9 Anxiety disorder, unspecified; Z88.2 Allergy status to sulfonamides; Z88.1 Allergy status to other antibiotic agents; Z79.899 Other long term (current) drug therapy; Z79.82 Long term (current) use of aspirin; Z87.891 Personal history of nicotine dependence